=== PATIENT | female | born 2005 | race Hispanic/Latino ===

== ENCOUNTER 2024-11-16 12:44 | Emergency (ER) | payer BC, MEDICAID ==
[~2024-11-16] VITALS: Ht 149.9 cm; Wt 92.5 kg
--- NOTE | 2024-11-16 14:30 | NUR ---
RT FOOT BOOT APPLIED , PT TOLERATED WELL
--- NOTE | 2024-11-16 14:32 | ERN ---
ED Note History of Present Illness Stated Complaint: LEFT FOOT PAIN Chief Complaint: FOOT INJURY/PAIN Time Seen by MD: 12:48 Time Seen by Midlevel: 12:50 Dictation: 19-year-old female with no past medical history coming in with complaints of pain to the 3rd 4th and 5th digit of the left foot. Patient states she dropped a detergent bottle that was fall on and has been having pain since. Patient also states she was seen at an urgent care told her she might have a hairline fracture and was told to follow up with the specialist but has not. Patient states she is here for a 2nd opinion Allergies: Coded Allergies: No Known Drug Allergies (Unverified Allergy, Unknown, 11/16/24) Past Medical History Past Medical History: No Pertinent History Surgical History: None Review of System Dictation Constitutional: Negative for fever,chills, and weight loss Eyes: Negative for injury, pain,redness, and discharge ENT: Negative for injury,pain or swelling Cardiovascular: Negative for chest pain, palpitations, and edema Respiratory: Negative for shortness of breath, cough, and wheezing, Abdomen/GI: Negative for abdominal pain, nausea, vomiting, diarrhea, and constipation Back: Negative for injury and pain : Negative for injury, bleeding and discharge MS/Extremity: Negative for injury and deformity, 3rd, 4th and 5th digit pain on the left foot Skin: Negative for rash, and discoloration Neuro: Negative for headache, weakness, numbness, tingling, and seizure Psych: Negative for suicide ideation, homicidal ideation, and hallucinations Initial Vital Sign VS Vital Signs Date Time Temp Pulse Resp B/P (MAP) Pulse Ox O2 Delivery O2 Flow Rate FiO2 11/16/24 12:46 98.1 90 18 138/99 99 Room Air 11/16/24 13:05 0 21 Physical Exam Dictation General: awake, alert, NAD Head/Face: Normocephalic, atraumatic Eyes: PERRL, EOMI, vision at baseline ENT: oral cavity clear, TMs clear, no signs of infection Neck: Trachea midline, supple, no nuchal rigidity Cardiovascular: RRR, normal S1/S2, No MRGs, no JVD Respiratory: CTAB, no respiratory distress, No rales or wheezes Abdomen: Soft, non-tender, non-distended, normal bowel sounds, no guarding or rebound. Skin: Warm, dry, normal turgor, no rash MS/Extremity: Pulses equal, no cyanosis, neurovascular intact, FROM, swollen minimal swelling and bruising noted to the dorsal aspect of the foot. Abrasion noted to the 3rd digit Neuro: COAx4, GCS 15, strength 5/5, CN 2-12 intact, normal cerebellar exam, normal gait, Psych: Normal behavior, mood, and affect normal ED Course ED Course Orders Procedure Category Date Status Time Foot Comp 3+Vws Lt RAD 11/16/24 Taken 13:18 Acetaminophen With PHA 11/16/24 Complete Codeine (Tylenol-Code 13:50 Current Medications Medications (Trade) Dose Ordered Sig/Steve Route PRN Reason Start Time Stop Time Status Last Admin Dose Admin Acetaminophen/ Codeine Phosphate (TYLenol-coDEINE TAB) 1 tab ONCE STAT PO 11/16/24 13:50 11/16/24 13:53 DC 11/16/24 14:17 Vital Signs Date Time Temp Pulse Resp B/P (MAP) Pulse Ox O2 Delivery O2 Flow Rate FiO2 11/16/24 13:05 98.1 88 18 138/87 98 Room Air* 0 21 11/16/24 12:46 98.1 90 18 138/99 99 Room Air Medical Decision Making MDM MDM: 19-year-old female with no past medical history coming in with complaints of pain to the 3rd 4th and 5th digit of the left foot. Patient states she dropped a detergent bottle that was fall on and has been having pain since. Patient also states she was seen at an urgent care told her she might have a hairline fracture and was told to follow up with the specialist but has not. Patient states she is here for a 2nd opinion. X-ray was interpreted by myself and ER MD, no acute findings noted. We will place patient in an orthopedic shoe and have patient follow up outpatient with the international specialist. Differential diagnosis: Hairline fracture, contusion, Rationale: Tests considered and ordered secondary to shared decision making include: Previous outside records reviewed: Old ER visits. Risk of complication and/or morbidity or mortality of patient management: None Medications-Per medication reconciliation Need for hospitalization: Patient does not meet criteria for hospitalization. Need for emergency major/minor surgery: No There are no social concerns with this patient. Prescription drug management Prescriptions will include symptomatic care Patient's prior external medical records from other ER visits were reviewed by me as indicated. Prior testing and results from previous visits were reviewed. Prior tests were taken into account with medical decision making and resource utilization, independent historian/historians were used to obtain complete medical history. I independently interpreted the test that were performed, results were reviewed by me and considered findings on radiology if ordered. Medical management and examination interpretation discussions were had by me with other qualified healthcare professionals as indicated for the patient's care. DX & DISP Disposition: Discharge Departure Impression: Primary Impression: Foot contusion Condition: Stable Additional Instructions: please follow up with specialist outpatient. Take Tylenol or motrin over the counter for pain control Referrals: SELF,REFERRAL (PCP) ARNOLD MCQUEEN DO Time of Disposition: 14:30 I have reviewed the case, and I agree with, Diagnosis and Plan BOSTON SOTO NP Nov 16, 2024 14:32
[2024-11-16 14:40] VITALS: BP 127/84; PULSE 84; RESP 18; TEMP 98.1; O2SAT 99
--- NOTE | 2024-11-16 14:45 | HMCIMG ---
EXAM: CR left foot, 3 View. CLINICAL HISTORY: injury COMPARISON: None provided. FINDINGS: BONES: No acute fracture or aggressive appearing osseous lesion. JOINTS: The joint spaces appear within normal limits. No dislocation. SOFT TISSUES: The soft tissues are unremarkable. IMPRESSION: No acute osseous abnormality. /[place]
== END 2024-11-16 14:41 | disposition home or self-care (01) ==
LOC: EDH 12:44
DX: S90.122A Contusion of left lesser toe(s) without damage to nail, initial encounter (principal); W18.39XA Other fall on same level, initial encounter; Y93.89 Activity, other specified; Y92.89 Other specified places as the place of occurrence of the external cause; Y99.8 Other external cause status
CPT/HCPCS: 73630; 99283

== ENCOUNTER 2025-02-16 03:11 | Emergency (ER) | payer SELFPAY ==
[~2025-02-16] VITALS: Ht 149.9 cm; Wt 97.5 kg
[2025-02-16] MEDS: LACTATED RINGERS 1000ML IV STA (04:11)
[2025-02-16] MEDS: ORPHENADRINE 60MG/2ML IVP ONE (04:11)
--- NOTE | 2025-02-16 04:14 | NUR ---
MOTHER OF PT WILL BE GOING HOME WITH YOUNG FAMILY MEMBER. PLEASE CALL WHEN SHE IS DISCHARGED. STATES PT HAS NUMBER IN HER PHONE.
[2025-02-16 04:23] LABS: IMMATURE GRANULOCYTE ABSOLUTE 0.01 K/uL (0-1); NUCLEATED RED BLOOD CELLS 0.0 % (0.0-0.19); PLATELET COUNT (AUTO) 372 K/uL (130-400); RED BLOOD CELL COUNT(AUTO) 4.52 MIL/uL (4.00-5.50); RED CELL DISTRIBUTION WIDTH 13.4 % (11.0-15.5); WHITE BLOOD COUNT (AUTO) 5.1 K/uL (4.8-10.8)
--- NOTE | 2025-02-16 04:31 | ERN ---
General Chief Complaint: Multiple Complaints Stated Complaint: FEVER, HEADACHE, DIZZIESS Time Seen by MD: 03:24 Source: patient History of Present Illness Initial Comments 19-year-old female coming in with fever headache nausea vomiting diarrhea and an orexia for 48 hours. 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 Patient mentions this because the last time she had this constellation of symptoms of fever headache dizziness anorexia it was when she was a child in the workup then showed this mass in her head. Per the mother, patient was told anytime she had a return of these symptoms she should have her head imaged for this mass. Mother comes here looking for an MRI. Per the mother patient was already seen at another hospital and says she saw to empty IV bags at her daughter's bedside before they came here. Mother is also concerned that the patient has a migraine headache and is wondering if she could get an IV cocktail for a migraine. Allergies: Coded Allergies: No Known Drug Allergies (Unverified Allergy, Unknown, 11/16/24) Past Medical History Past Medical History: Other Medical History Other: " BRAIN MASS" RESOLVED Past Surgical History: None Female( History) LMP: Feb 11, 2025 Constitutional: (-) chills, (-) diaphoresis, (-) fever, (-) malaise, (-) weakness, (-) other documentation EENTM: (-) eye pain, (-) blurred vision, (-) tearing, (-) double vision, (-) ear pain, (-) ear discharge, (-) nose pain, (-) nose congestion, (-) throat pain, (-) Throat swelling, (-) mouth pain, (-) tooth pain, (-) mouth swelling, (-) other documentation Respiratory: (-) cough, (-) orthopnea, (-) short of breath, (-) stridor, (-) wheezing, (-) other documentation Cardiovascular: (-) chest pain, (-) edema, (-) palpitations, (-) syncope, (-) dyspnea on exertion, (-) other documentation Gastrointestinal/Abdominal: (+) nausea, (+) vomiting, (+) diarrhea, (+) abdominal pain Genitourinary: (-) vaginal discharge, (-) vaginal bleeding, (-) dysuria, (-) frequency, (-) hematuria, (-) pain, (-) other documentation Musculoskeletal: (-) Neck pain, (-) back pain, (-) Flank Pain, (-) joint pain, (-) joint swelling, (-) muscle pain, (-) muscle stiffness, (-) gout, (-) other documentation Neuro: (+) headache Physical Exam General Appearance: (+) mild distress Orientation: (+) alert, (+) oriented x 3 Head/Face Trauma: No Eye: bilateral eye normal inspection, bilateral eye PERRL, bilateral eye EOMI Ear, Nose, Throat: (+) hearing grossly normal, (+) normal ENT inspection Neck: (+) normal inspection, (+) supple, (+) full range of motion Respiratory: (+) chest non-tender, (+) lungs clear Heart: (+) regular, (+) no gallop Vascular: (+) no edema, (+) normal peripheral pulse Gastrointestinal: (+) soft, (+) non-tender, (+) bowel sound present Results Laboratory and Microbiology Lab and Micro Result Laboratory Tests Test 02/16/25 04:14 White Blood Count 5.1 K/uL (4.8-10.8) Red Blood Count 4.52 MIL/uL (4.00-5.50) Hemoglobin 12.2 g/dL (12.0-16.0) Hematocrit 37.2 % (36-48) Mean Corpuscular Volume 82.3 fL (80-100) Mean Corpuscular Hemoglobin 27.0 pg (27.0-33.0) Mean Corpuscular Hemoglobin Concent 32.8 g/dL (32.0-36.0) Red Cell Distribution Width 13.4 % (11.0-15.5) Platelet Count 372 K/uL (130-400) Mean Platelet Volume 8.9 fL (7.5-10.5) Immature Granulocyte % (Auto) 0.2 % (0-1) Neutrophils (%) (Auto) 46.7 % (40.0-77.0) Lymphocytes (%) (Auto) 43.0 % (21.0-51.0) Monocytes (%) (Auto) 9.5 % (3.0-13.0) Eosinophils (%) (Auto) 0.4 % (0.0-8.0) Basophils (%) (Auto) 0.2 % (0.0-5.0) Neutrophils # (Auto) 2.4 K/uL (1.8-7.7) Lymphocytes # (Auto) 2.2 K/uL (1.0-4.8) Monocytes # (Auto) 0.5 K/uL (0.1-1.0) Eosinophils # (Auto) 0.02 K/uL (0.00-0.70) Basophils # (Auto) 0.01 K/uL (0.00-0.20) Absolute Immature Granulocyte (auto 0.01 K/uL (0-1) Nucleated Red Blood Cells 0.0 % (0.0-0.19) Sodium Level 139 mmol/L (136-145) Potassium Level 3.8 mmol/L (3.5-5.1) Chloride Level 103 mmol/L (101-111) Carbon Dioxide Level 28 mmol/L (21-32) Blood Urea Nitrogen 7 mg/dL (7-18) Creatinine 0.6 mg/dL (0.5-1.0) Glomerular Filtration Rate Calc 131 mL/min (>90) Random Glucose 100 mg/dL (70-105) Total Calcium 8.3 mg/dL (8.5-10.1) L Total Bilirubin 0.4 mg/dL (0.2-1.0) Aspartate Amino Transf (AST/SGOT) 18 U/L (10-37) Alanine Aminotransferase (ALT/SGPT) 21 U/L (12-78) Alkaline Phosphatase 100 U/L (50-136) Total Protein 7.6 g/dL (6.0-8.3) Albumin 3.2 g/dL (3.5-5.0) L Serum Test, Qualitative NEGATIVE (NEGATIVE) MDM MDM: Differential diagnosis: Dehydration, migraine, pituitary mass, gastroenteritis, viral infection flu. Rationale: Tests considered and ordered secondary to shared decision making include: Previous outside records reviewed: Old ER visits. Risk of complication and/or morbidity or mortality of patient management: None Medications-Per medication reconciliation Need for hospitalization: Patient does meet criteria for hospitalization. Need for emergency major/minor surgery: No There are no social concerns with this patient. Prescription drug management Prescriptions will include symptomatic care Patient's prior external medical records from other ER visits were reviewed by me as indicated. Prior testing and results from previous visits were reviewed. Prior tests were taken into account with medical decision making and resource utilization, independent historian/historians were used to obtain complete medical history. I independently interpreted the test that were performed, results were reviewed by me and considered findings on radiology if ordered. CT scan did not show any large mass in the sella. Chemistry panel was normal CBC was normal. Patient states she feels much better with the fluids and medications I gave her. She is ready to go home. ED Course Orders Procedure Category Date Status Time Comprehensive LAB 02/16/25 Complete Metabolic Panel 03:53 Cbc With Differential LAB 02/16/25 Complete 03:53 Urinalysis Profile LAB 02/16/25 Logged 03:53 Lactated Ringers PHA 02/16/25 Complete 1000ml (Lactated 03:53 Orphenadrine Citrate PHA 02/16/25 Complete (Norflex) 04:00 Ketorolac PHA 02/16/25 Complete Tromethamine 30mg/Ml 04:00 Ondansetron 4mg Inj PHA 02/16/25 Complete (Zofran 4mg Inj) 04:00 Ct Head/Brain W/O CT 02/16/25 Resulted Contrast 03:59 Testing, LAB 02/16/25 Complete Serum Hcg 04:34 12 Lead Ekg Tracing- EKG 02/16/25 Logged Technical 05:50 Troponin I High LAB 02/16/25 In Process Sensitivity 05:50 Current Medications Medications (Trade) Dose Ordered Sig/Steve Route PRN Reason Start Time Stop Time Status Last Admin Dose Admin Ketorolac Tromethamine (toRADol) 30 mg ONCE ONCE IVP 02/16/25 04:00 02/16/25 04:01 DC 02/16/25 04:11 Lactated Ringer's (Lactated Ringers 1000ml) 1,000 ml BOLUS STAT IV 02/16/25 03:53 02/16/25 03:59 DC 02/16/25 04:11 Ondansetron HCl (zoFRAN 4MG INJ) 4 mg ONCE ONCE IVP 02/16/25 04:00 02/16/25 04:01 DC 02/16/25 04:11 Orphenadrine Citrate (Norflex) 60 mg ONCE ONCE IVP 02/16/25 04:00 02/16/25 04:01 DC 02/16/25 04:11 Vital Signs Date Time Temp Pulse Resp B/P (MAP) Pulse Ox O2 Delivery O2 Flow Rate FiO2 02/16/25 05:36 98.4 66 19 91/60 98 Room Air* 0 21 02/16/25 03:26 98.4 89 18 92/63 97 Room Air* 0 21 02/16/25 03:13 97.2 93 20 113/71 97 Room Air DX & DISP Disposition: Discharge Departure Impression: Primary Impression: Gastroenteritis Condition: Stable Additional Instructions: You came in because of nausea vomiting and diarrhea as well as dizziness. I think you were suffering from gastroenteritis and you became dehydrated. Your feeling better now that I have given you fluid. Your laboratory studies are normal. I think it is safe to go home. Please drink enough fluid to stay well hydrated to the point that your urine is clear at least once a day. For now I recommend liquid diet advanced to solid food as you feel able. Pedialyte would be a good fluid to drink for hydration and electrolytes. We did do a CT scan of your head it does not show an obvious large mass in or near your pituitary gland or anywhere else. If you are concerned about a pituitary gland or mass an MRI truly would be the better way to see it, please follow-up with her primary care physician to arrange this. We do not have an MRI on the weekends. Referrals: SELF,REFERRAL (PCP) ZENA ALVARES MD Feb 16, 2025 04:31
[2025-02-16 04:38] LABS: CREATININE 0.6 mg/dL (0.5-1.0); GLOMERULAR FILTR. RATE CALC 131.0 mL/min (>90); GLUCOSE,RANDOM 100.0 mg/dL (70-105); SODIUM SERUM 139.0 mmol/L (136-145); UREA NITROGEN, BLOOD 7.0 mg/dL (7-18)
[2025-02-16 04:42] LABS: ASPARTATE AMINOTRANSFERASE 18.0 U/L (10-37); TOTAL PROTEIN, SERUM 7.6 g/dL (6.0-8.3)
--- NOTE | 2025-02-16 06:05 | HMCIMG ---
EXAM: Non-contrast CT examination of the Brain CLINICAL HISTORY: Rule out pituitary mass. TECHNIQUE: Thin collimated axial CT images of the brain were obtained with sagittal and coronal reformatted images also submitted. CT scan is done according to ALARA (As Low as Reasonably Achievable). CONTRAST USED: None. COMPARISON: None provided. FINDINGS: No sellar or suprasellar mass is evident on CT evaluation. No acute intracranial abnormality is present. No acute cortical infarction, hemorrhage, mass, or mass effect. No hydrocephalus or abnormal extra-axial fluid collections. The posterior fossa is unremarkable. The skull base and calvarium are intact. Mild chronic left maxillary sinusitis. The remaining paranasal sinuses are clear. The mastoid air cells are clear bilaterally. IMPRESSION: No sellar or suprasellar mass is evident on CT evaluation. Recommend a dynamic contrast-enhanced MRI of the pituitary gland for an optimal evaluation. No acute intracranial abnormality is present. /[place]
--- NOTE | 2025-02-16 06:19 | EKG ---
[facility] Test Date: 2025-02-16 Test Time: 05:54:15 Pat Name: JENNIFER DOMINGO Department: ED Room: Gender: F National Sales: [id number] : 2005 Requested By: ZENA ALVARES Order Number: [id number] Reading MD: Sherri Bell Measurements Intervals Una Rate: 59 P: 20 SC: 154 QRS: 68 QRSD: 83 T: 9 QT: 420 QTc: 418 Interpretive Statements Sinus rhythm No previous ECG available for comparison Electronically Signed On 02-17-2025 16:11:11 CDT by Sherri Bell Please click the below link to view image of tracing.
[2025-02-16 06:39] VITALS: BP 98/63; PULSE 62; RESP 19; TEMP 98.5; O2SAT 98
== END 2025-02-16 06:41 | disposition home or self-care (01) ==
LOC: EDH 03:11
DX: K52.9 Noninfective gastroenteritis and colitis, unspecified (principal); R11.2 Nausea with vomiting, unspecified; R63.0 Anorexia
CPT/HCPCS: 99285; 96374; 70450; 96375; 96361; 84484; 80053; 84703; 85025; 36415; 93005; J1885; J7120; J2405; J2360